=== PATIENT | female | born 1935 | race Caucasian/White ===

== ENCOUNTER 2016-08-17 08:24 | Day surgery (SDC) | payer MEDICARE ==
[2016-08-14 15:15] VITALS: BMI 20.8
[~2016-08-17 08:24] MED LIST: LACTATED RINGERS 1,000 ML IV SCH
[2016-08-17 08:50] VITALS: TEMP 97.4
[2016-08-17] MEDS ORDERED: LIDOCAINE 1% 20 ML VIAL (10MG/ML) FOR IV START SQ ONE (08:52)
[2016-08-17 09:14] LABS: Glucose,Whole Blood 93 mg/dL (75-99)
[2016-08-17] MEDS ORDERED: PROPOFOL 10 MG/ML 20 ML VIAL IV ONE (09:54)
[2016-08-17] MEDS ORDERED: GLYCOPYRROLATE 0.2 MG/ML 2 ML VIAL ONE (09:54)
[2016-08-17] MEDS ORDERED: LIDOCAINE 1% INJ 10MG/ML (20 ML MDV) ONE (09:54)
--- NOTE | 2016-08-17 10:31 | P.PCN ---
Date of Procedure: 08/17/16 Procedure(s) Performed: Procedure: Esophagogastroduodenoscopy and biopsy. Preoperative diagnosis: Gastroesophageal reflux and dysphagia. Postoperative diagnosis: 1. Small sliding hiatal hernia with no obvious esophagitis or complicated reflux disease. 2. Antral gastritis and duodenitis. Preparation and sedation: Were provided by anesthesia. Brief clinical history: The patient is an 81-year-old female who was evaluated in the office in June for further evaluation of reflux. She was complaining of episodes of retrosternal burning and pain over the left chest and left arm. Cardiac workup was negative. She also had issues with dysphagia worse over the last several months with no other alarm symptoms. The patient had prior upper endoscopies and history of H. pylori infection in the past. Procedure: With the patient on her left lateral decubitus position and after informed consent and adequate sedation, I passed the Olympus-GIF 160 video upper endoscope through the cricopharyngeus down the esophagus. GE junction was around 38 cm from the incisors and there was a small sliding hiatal hernia. The esophagus did not show any obvious erosions or ulcers. There were no strictures or Omer's esophagus. The endoscope was then passed into the stomach which was insufflated with air and inspected in detail including the retroflex view in the cardia. There was mottling and erythema and some deformity in the antrum and the immediate prepyloric area with occasional erosion but no ulcers or bleeding. Pyloric channel did not show any ulcers. Duodenal bulb, post bulbar area and descending duodenum showed minimal erythema. I obtained multiple biopsies from the duodenum, antrum and esophagus then the endoscope was withdrawn. The patient tolerated the procedure well. Plan: Will await biopsy results. She will follow-up in the office and make further plans based on her course and biopsy results. I would consider an esophagogram and a motility study if she continues to be symptomatic especially if there is nutritional compromise. Would keep you updated on her progress.
[2016-08-17 10:48] VITALS: BP 122/78; PULSE 72; RESP 18
== END 2016-08-17 11:10 | disposition home or self-care (01) ==
LOC: ORWHC2ENDO 08:24
DX: K21.9 Gastro-esophageal reflux disease without esophagitis (principal); K29.50 Unspecified chronic gastritis without bleeding; K44.9 Diaphragmatic hernia without obstruction or gangrene; E78.5 Hyperlipidemia, unspecified; E16.2 Hypoglycemia, unspecified; Z79.2 Long term (current) use of antibiotics; Z79.899 Other long term (current) drug therapy; Z91.040 Latex allergy status
CPT/HCPCS: 88305; 88342; 43239; J2001; J2704; 99153

== ENCOUNTER → 2016-09-28 | Outpatient (CLI) | payer MEDICARE ==
--- NOTE | 2016-10-02 11:32 | MM ---
Reason for exam: screening (asymptomatic). Last mammogram was performed 1 year ago. History: Patient is postmenopausal. Family history of breast cancer in sister at age 65. Physical Findings: A clinical breast exam by your physician is recommended on an annual basis and results should be correlated with mammographic findings. MG Screening Mammo w CAD Bilateral CC and MLO view(s) were taken. Prior study comparison: September 14, 2015, bilateral MG screening mammo w CAD. September 03, 2014, bilateral MG screening mammo w CAD. The breast tissue is heterogeneously dense. This may lower the sensitivity of mammography. Finding: There are typically benign calcifications in both breasts. No significant changes in finding since September 14, 2015 and September 03, 2014. ASSESSMENT: Benign, BI-RAD 2 RECOMMENDATION: Routine screening mammogram of both breasts in 1 year.
== END | disposition home or self-care (01) ==
LOC: RADMAMWWP 07:39
PROVIDERS: ATTEND Internal Medicine
DX: Z12.31 Encounter for screening mammogram for malignant neoplasm of breast (principal)

== ENCOUNTER → 2017-01-10 | Outpatient (CLI) | payer MEDICARE ==
--- NOTE | 2017-01-11 07:57 | WWHP ---
DATE OF SERVICE: 01/10/2017 CHIEF COMPLAINT: Patient is here for her routine gynecologic exam. HPI: This is an 81-year-old G2, P2 with an LMP of the . The patient is status post vaginal hysterectomy for benign reasons. She states she has been having some vaginal irritation especially after wiping following urination. She states it feels more like a slight burning irritation and denies pruritis. She also denies vulvar pruritis. She states that irritation is just inside of the vagina. She saw her primary care physician for this and a PAP smear of the vaginal cuff was attempted but was returned as unsatisfactory because of inadequate cells. The patient denies vaginal discharge or odor. PAST MEDICAL HISTORY: Gastroesophageal reflux disease, hiatal hernia, elevated cholesterol, osteopenia, hypoglycemia which is diet-controlled. MEDICATIONS: 1. Toprol 25 mg daily. 2. Antivert 1 t.i.d. p.r.n. 3. Zocor 5 mg daily. 4. Aspirin 325 mg daily. 5. Vitamin D supplement daily. 6. Co-Q 10 daily. Allergies to LATEX. There are no known drug allergies. Past surgical history is unchanged from the 2014 H&P. 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 She has no history of STD's. SOCIAL HISTORY: She denies tobacco, alcohol and drug use and is a and is not sexually active. FAMILY HISTORY: Both parents had an MD, sister had breast cancer and heart disease. REVIEW OF SYSTEMS: She has gained about 5 pounds over the last year. She denies respiratory, cardiac or GI problems. She denies maltreatment or falling. : She denies any significant problems with urinary leakage. She has had some vaginal irritation as above. PHYSICAL EXAM: Blood pressure 147/79, height 5 feet, 2 inches, weight 122 pounds, temperature 98.2, pulse 80. This is a well-developed, well-nourished white female who is alert and oriented x3 in no acute distress. HEENT is within normal limits. NECK: Supple without mass or thyromegaly. Chest and lungs clear to auscultation. HEART: Regular rate and rhythm. Breasts are without mass or discharge. Axillary exam is negative for adenopathy. BACK: Negative for CVA tenderness. ABDOMEN: Soft, nontender without palpable masses. PELVIC EXAM: External genitalia reveals moderate atrophy without lesions. There is minimal erythema noted. Vagina reveals moderate atrophy without lesions. There is no unusual discharge and no evidence of prolapse. By manual exam is negative for mass or tenderness. Rectovaginal exam is negative for mass or tenderness and is negative for occult blood. EXTREMITIES: Nontender. IMPRESSION: 1. An 81-year-old menopausal female with a several month history of vaginal irritation, especially after wiping. 2. 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 PLAN: 1. PAP smears have been discontinued. I have discussed this with the patient and I do not feel the need to repeat the PAP smear even though it was unsatisfactory when obtained through here primary restorative care technician. This is because she is status post vaginal hysterectomy for benign reasons. 2. Self-breast examination was discussed. 3. Mammogram was done on 09/28/2016 and was benign. She will repeat this in 1 year. 4. Trial of Premarin vaginal cream. She is use small amount of 1 g or less which she will apply to the area of the entroitis and just inside of the vagina as well as near the urethral opening. She will apply this twice weekly. 5. Osteoporosis prevention was discussed. I have recommended bone density testing since it has been several years but she is declining this. 6. I have recommended she consider flu shots in the fall which she is also declining. 7. She will return in 1 year and p.r.n. MTDD
== END ==
LOC: WWCWWP 10:21
PROVIDERS: ATTEND Obstetrics & Gynecology
DX: Z01.419 Encounter for gynecological examination (general) (routine) without abnormal findings (principal)

== ENCOUNTER → 2017-04-18 | Outpatient (CLI) | payer MEDICARE ==
--- NOTE | 2017-05-04 07:11 | ENG ---
ELECTRONYSTAGMOGRAM REPORT DATE OF SERVICE: 04/18/2017 VNG INDICATION: This is an 82-year-old female with vertigo, intermittent since 1998 staying the same. Dizziness can be precipitated by looking up or head back position, turning the head left to right, bending over, or movements of the head in general. Denies hearing loss. There is pain and fullness in the left ear. VNG FINDINGS: Saccades show intact peak velocities, accuracies and latencies. Gaze with fixation shows no nystagmus in any of the directions of gaze including centrally with vision denied. TRACKING: Unremarkable. Opticokinetic nystagmus shows no significant asymmetry. Static position testing shows nystagmus in any of the six positions tested with eyes opened or vision denied. [employer]-Hallpike maneuvers are negative bilaterally. Caloric testing shows bilateral caloric weakness. Another test such as head thrust test or if available, active and passive rotation testing is required to confirm presence of bilateral vestibular dysfunction. No determination can be made regarding vestibulopathy. IMPRESSION: 1. Bilateral caloric weakness precludes determination of vestibulopathy. Other testing such has head thrust or active or passive rotation testing required to confirm presence of bilateral vestibular dysfunction. 2. No other abnormalities were noted with this VNG study. No central features. MMODL / IJN: [id number] /
== END ==
LOC: NEUROMAIN 08:38
PROVIDERS: ATTEND Otolaryngology
DX: R42 Dizziness and giddiness (principal)
CPT/HCPCS: 92537; 92540

== ENCOUNTER → 2017-10-23 | Outpatient (CLI) | payer MEDICARE ==
--- NOTE | 2017-10-24 11:57 | MM ---
Reason for exam: screening (asymptomatic). Last mammogram was performed 1 year and 1 month ago. History: Patient is postmenopausal. Family history of breast cancer in sister at age 65. Physical Findings: A clinical breast exam by your physician is recommended on an annual basis and results should be correlated with mammographic findings. MG 3D Screening Mammo W/Cad Bilateral CC and MLO view(s) were taken. Prior study comparison: September 28, 2016, bilateral MG screening mammo w CAD. September 14, 2015, bilateral MG screening mammo w CAD. The breast tissue is heterogeneously dense. This may lower the sensitivity of mammography. Benign calcifications, mostly vascular. No suspicious abnormality. No significant changes when compared with prior studies. ASSESSMENT: Benign, BI-RAD 2 RECOMMENDATION: Routine screening mammogram of both breasts in 1 year.
== END | disposition home or self-care (01) ==
LOC: RADMAMWWP 09:49
PROVIDERS: ATTEND Internal Medicine
DX: Z12.31 Encounter for screening mammogram for malignant neoplasm of breast (principal)
CPT/HCPCS: 77063; 77067

== ENCOUNTER → 2018-03-27 | Outpatient (CLI) | payer MEDICARE ==
[2018-03-27 10:12] VITALS: BP 129/77; PULSE 84; RESP 16; TEMP 98; BMI 22.6
--- NOTE | 2018-03-27 11:20 | P.HPOB ---
History of Present Illness H&P Date: 03/27/18 Chief Complaint: The patient is here for her routine gynecologic exam. This is an 83-year-old G2 PII with an LMP in the . The patient is status post vaginal hysterectomy for benign reasons. The patient is without gynecologic complaints. Review of Systems The patient's weight has been stable. She denies respiratory, cardiac and G.I. problems except for occasional gastric reflux. She denies maltreatment or problems with falling. : she denies any significant problems with urinary leakage. Past Medical History Past Medical History: GERD/Reflux, Hyperlipidemia Additional Past Medical History / Comment(s): HX H.PYLORI. OCCASIONAL ARRYTHMIA. HYPOGLYCEMIA diet controlled. 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 History of Any Multi-Drug Resistant Organisms: None Reported Past Surgical History: Appendectomy, Hysterectomy (Vaginal hysterectomy with cystocele repair 2010-) Additional Past Surgical History / Comment(s): HEMORROIDECTOMY. Cataracts. COLONOSCOPIES (last 2013), EGD. Past Anesthesia/Blood Transfusion Reactions: No Reported Reaction Past Psychological History: No Psychological Hx Reported Smoking Status: Never smoker Past Alcohol Use History: None Reported Past Drug Use History: None Reported Additional History: She is a and is not sexually active. - Past Family History Sister(s) Family Medical History: Cancer (Breast) Father Family Medical History: Cancer, Myocardial Infarction ([place]), Osteoarthritis ([place]) Mother Family Medical History: Myocardial Infarction ([place]) Medications and Allergies Home Medications Medication Instructions Recorded Confirmed Type Aspirin 81 mg PO DAILY 12/22/13 03/27/18 History Calcium Carbonate/Vitamin D3 1 tab PO DAILY 12/22/13 03/27/18 History [Caltrate 600 Plus D3 Tablet] Fish Oil/Dha/Epa [Fish Oil 1,200 1 cap PO DAILY 12/22/13 03/27/18 History mg Fish Oil] Metoprolol Succinate [Toprol XL] 25 mg PO 1200 12/22/13 03/27/18 History Simvastatin [Zocor] 5 mg PO MOTUWETHFR 12/22/13 03/27/18 History Ubidecarenone [Coq-10] 100 mg PO DAILY 12/22/13 03/27/18 History Vitamin B Complex 1 cap PO DAILY 12/22/13 03/27/18 History Vitamin E (Dl,Tocopheryl Acet) 400 units PO DAILY 12/22/13 03/27/18 History [Vitamin E] Calcium Carb/Magnesium Hydrox 2 tab PO 5XD PRN 05/24/15 03/27/18 History [Rolaids Chewable Tablet] Propylene Glycol/Peg 400/Pf 1 drop BOTH EYES BID 05/24/15 03/27/18 History [Systane 0.3-0.4% Eye Drops] Acetaminophen [Tylenol] 500 mg PO Q4-6H PRN 08/14/16 03/27/18 History Meclizine [Antivert] 12.5 mg PO TID PRN 08/14/16 03/27/18 History Saline Nasal [place] 1 spray EA NOSTRIL DAILY 08/14/16 03/27/18 History Allergies Allergy/AdvReac Type Severity Reaction Status Date / Time latex Allergy Rash/Hives Verified 03/27/18 10:13 Exam Vital Signs Temp Pulse Resp BP 03/27/18 10:08 98 F 84 16 129/77 Intake and Output 03/26/18 03/27/18 03/27/18 22:59 06:59 14:59 Other: Weight 56.245 kg 5'2", BMI 22.7. This is a well-developed well-nourished white female who is alert and oriented times 3 in no acute distress. HEENT: Within normal limits. NECK: Supple without mass or thyromegaly. CHEST AND LUNGS: Clear to auscultation. HEART: Regular rate and rhythm. BREASTS: Are without mass or discharge. AXILLARY EXAM: Negative for adenopathy. BACK: Negative for CVA tenderness. ABDOMEN: Soft, nontender, without palpable masses. PELVIC EXAM: External genitalia appears normal with mild to moderate atrophy. Vagina appears normal with mild to moderate atrophy. There is no evidence of prolapse. Bimanual examination is negative for mass or tenderness. RECTAL EXAM: Rectovaginal exam is negative for mass or tenderness and is negative for occult blood. EXTREMITIES: Nontender. IMPRESSION: 1. 83-year-old menopausal female status post vaginal hysterectomy for benign reasons with normal gynecologic exam. PLAN: 1. Pap smears have been discontinued. 2. Self breast awareness was discussed with the patient. 3. Screening mammogram was done on 10/23/2017 and was negative. She will repeat this in one year. 4. Osteoporosis prevention was discussed. She states she is scheduled to do a bone density test through Dr. Garrett in May. 5. I've recommended flu shots in the fall which she is declining. 6. She will return in one year.
== END ==
LOC: WWCWWP 09:27
PROVIDERS: ATTEND Obstetrics & Gynecology
DX: Z53.9 Procedure and treatment not carried out, unspecified reason (principal)

== ENCOUNTER → 2018-10-24 | Outpatient (CLI) | payer MEDICARE ==
--- NOTE | 2018-10-25 13:18 | MM ---
Reason for exam: screening (asymptomatic). Last mammogram was performed 1 year ago. History: Patient is postmenopausal. Family history of breast cancer in sister at age 65. Physical Findings: A clinical breast exam by your physician is recommended on an annual basis and results should be correlated with mammographic findings. MG 3D Screening Mammo W/Cad Bilateral CC and MLO view(s) were taken. Prior study comparison: October 23, 2017, bilateral MG 3d screening mammo w/cad. September 28, 2016, bilateral MG screening mammo w CAD. The breast tissue is heterogeneously dense. This may lower the sensitivity of mammography. Stable benign calcifications. There is chronic nodularity in the right breast. No significant changes when compared with prior studies. ASSESSMENT: Benign, BI-RAD 2 RECOMMENDATION: Routine screening mammogram of both breasts in 1 year.
== END | disposition home or self-care (01) ==
LOC: RADMAMWWP 09:56
PROVIDERS: ATTEND Internal Medicine
DX: Z12.31 Encounter for screening mammogram for malignant neoplasm of breast (principal)
CPT/HCPCS: 77063; 77067

== ENCOUNTER → 2019-04-01 | Outpatient (CLI) | payer MEDICARE ==
[2019-04-01 08:17] VITALS: BP 133/73; PULSE 69; RESP 18; TEMP 98.1; BMI 22.1
--- NOTE | 2019-04-01 09:22 | P.HPOB ---
History of Present Illness H&P Date: 04/01/19 Chief Complaint: The patient is here for her routine gynecologic exam. This is an 84-year-old with an LMP in the . The patient is status post vaginal hysterectomy for benign reasons. The patient is without gynecologic complaints. Review of Systems Her weight has been stable. She denies respiratory, cardiac and G.I. problems. She denies maltreatment or problems with falling. : she denies any significant problems with urinary leakage. Past Medical History Past Medical History: GERD/Reflux, Hyperlipidemia Additional Past Medical History / Comment(s): HX H.PYLORI. OCCASIONAL ARRYTHMIA. HYPOGLYCEMIA diet controlled. 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 History of Any Multi-Drug Resistant Organisms: None Reported Past Surgical History: Appendectomy, Hysterectomy Additional Past Surgical History / Comment(s): Vaginal hysterectomy with cystocele repair 2010. HEMORROIDECTOMY. Cataracts. COLONOSCOPIES (last 2013), EGD. Past Anesthesia/Blood Transfusion Reactions: No Reported Reaction Past Psychological History: No Psychological Hx Reported Smoking Status: Never smoker Past Alcohol Use History: None Reported Past Drug Use History: None Reported Additional History: She is a and is not sexually active. - Past Family History Sister(s) Family Medical History: Cancer Additional Family Medical History / Comment(s): Breast cancer. Father Family Medical History: Cancer, Myocardial Infarction ([place]), Osteoarthritis ([place]) Mother Family Medical History: Myocardial Infarction ([place]) Medications and Allergies Home Medications Medication Instructions Recorded Confirmed Type Aspirin 81 mg PO DAILY 12/22/13 04/01/19 History Calcium Carbonate/Vitamin D3 1 tab PO DAILY 12/22/13 04/01/19 History [Caltrate 600 Plus D3 Tablet] Fish Oil/Dha/Epa [Fish Oil 1,200 1 cap PO DAILY 12/22/13 04/01/19 History mg Fish Oil] Metoprolol Succinate [Toprol XL] 25 mg PO 1200 12/22/13 04/01/19 History Simvastatin [Zocor] 5 mg PO MOTUWETHFR 12/22/13 04/01/19 History Ubidecarenone [Coq-10] 100 mg PO DAILY 12/22/13 04/01/19 History Vitamin B Complex 1 cap PO DAILY 12/22/13 04/01/19 History Calcium Carb/Magnesium Hydrox 2 tab PO 5XD PRN 05/24/15 04/01/19 History [Rolaids Chewable Tablet] Propylene Glycol/Peg 400/Pf 1 drop BOTH EYES BID 05/24/15 04/01/19 History [Systane 0.3-0.4% Eye Drops] Acetaminophen [Tylenol] 500 mg PO Q4-6H PRN 08/14/16 04/01/19 History Saline Nasal [place] 1 spray EA NOSTRIL DAILY 08/14/16 04/01/19 History Allergies Allergy/AdvReac Type Severity Reaction Status Date / Time latex Allergy Rash/Hives Verified 04/01/19 08:17 Exam Vital Signs Temp Pulse Resp BP Pulse Ox 04/01/19 08:07 98.1 F 69 18 133/73 98 Intake and Output 03/31/19 04/01/19 04/01/19 22:59 06:59 14:59 Other: Weight 54.885 kg Height 5 feet 2 inches, weight 121 pounds, BMI 22.1. This is a well-developed well-nourished white female who is alert and oriented times 3 in no acute distress. HEENT: Within normal limits. NECK: Supple without mass or thyromegaly. CHEST AND LUNGS: Clear to auscultation. HEART: Regular rate and rhythm. BREASTS: Are without mass or discharge. AXILLARY EXAM: Negative for adenopathy. BACK: Negative for CVA tenderness. ABDOMEN: Soft, nontender, without palpable masses. PELVIC EXAM: External genitalia appears normal with mild to moderate atrophy. Vagina appears normal is mild to moderate atrophy. There is no evidence of prolapse. Bimanual examination is negative for mass or tenderness. RECTAL EXAM: Rectovaginal exam is negative for mass or tenderness and is negative for occult blood. EXTREMITIES: Nontender. IMPRESSION: 1. 84-year-old menopausal female status post vaginal hysterectomy for benign reasons with normal gynecologic exam. 2. 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 PLAN: 1. Pap smears have been discontinued. 2. Self breast awareness was discussed with the patient. 3. Screening mammogram was done on 10/24/2018 and was benign. She will repeat this in 1 year. 4. Osteoporosis prevention was discussed. I have stressed the importance of adequate calcium, vitamin D and regular exercise. Recommended amounts of calcium and vitamin D were also discussed. She states she had a bone density test done within the last year through her PCP and was okay per the patient. 5. She states she does not get flu shots in the fall. I have recommended that she reconsider this. 6. The patient was advised to return in 1-2 years for her well woman examination.
== END | disposition home or self-care (01) ==
LOC: WWCWWP 07:37
PROVIDERS: ATTEND Obstetrics & Gynecology
DX: Z53.9 Procedure and treatment not carried out, unspecified reason (principal)

== ENCOUNTER 2019-10-19 18:32 | Emergency (ER) | payer MEDICARE ==
[2019-10-19 18:46] VITALS: RESP 16
[2019-10-19] MEDS ORDERED: SODIUM CHLORIDE 0.9% 500 ML 500 ML IV STA (18:59)
--- NOTE | 2019-10-19 19:23 | ED ---
Arrhythmia/Palpitations HPI - General Source: patient Mode of arrival: ambulatory Limitations: no limitations <Brianda Bustillo - Last Filed: 10/19/19 22:00> <Ignacia Mora - Last Filed: 10/20/19 23:26> - General Chief Complaint: Arrhythmia/Palpitations Stated Complaint: SOB, rapid heart rate Time Seen by Provider: 10/19/19 18:47 - History of Present Illness Initial Comments: 84-year-old female patient presents to the emergency department today for evaluation of palpitations. Patient states she was sitting watching television when she felt her heart start to race. States she can feel a pounding in her ch est. She denies any associated symptoms with this. States this generally does not happen to her. States the initial episode was around 2:30 this afternoon. States took an aspirin at that time and her symptoms seemed to resolve. States that it occurred again just prior to arrival so she decided to come in and get checked out. Patient states that she when she felt her pulse it felt regular, just fast. She denies any dizziness, weakness, chest pain, shortness of breath, nausea, or vomiting with this. Patient states that she did have chest test 6 months ago which was unremarkable. States she did wear a heart monitor for a period of time after the stress test. States this was just routine checkup and not related to any symptoms she was having. Patient denies any recent rash, fever, chills, cough, abdominal pain, diarrhea, constipation, back pain, numbness, tingling, hematuria, dysuria, urinary urgency, urinary frequency, headache, visual changes, or any other complaints. (Brianda Bustillo) - Related Data Home Medications Medication Instructions Recorded Confirmed Calcium Carbonate/Vitamin D3 1 tab PO DAILY 12/22/13 10/19/19 [Caltrate 600 Plus D3 Tablet] Fish Oil/Dha/Epa [Fish Oil 1,200 1 cap PO DAILY 12/22/13 10/19/19 mg Fish Oil] Metoprolol Succinate [Toprol XL] 12.5 mg PO DAILY 12/22/13 10/19/19 Simvastatin [Zocor] 5 mg PO MOTUWETHFR 12/22/13 10/19/19 Ubidecarenone [Coq-10] 100 mg PO DAILY 12/22/13 10/19/19 Vitamin B Complex 1 cap PO DAILY 12/22/13 10/19/19 Propylene Glycol/Peg 400/Pf 1 drop BOTH EYES BID 05/24/15 10/19/19 [Systane 0.3-0.4% Eye Drops] Acetaminophen [Tylenol] 500 mg PO Q4-6H PRN 08/14/16 10/19/19 Aspirin EC [Ecotrin Low Dose] 81 mg PO DAILY 10/19/19 10/19/19 Calcium Carbonate [Tums] 1,000 mg PO TID PRN 10/19/19 10/19/19 Sodium Chloride [[place]] 1 spray EA NOSTRIL DAILY 10/19/19 10/19/19 Allergies Allergy/AdvReac Type Severity Reaction Status Date / Time latex Allergy Rash/Hives Verified 10/19/19 20:30 Review of Systems ROS Other: All systems not noted in ROS Statement are negative. <Brianda Bustillo - Last Filed: 10/19/19 22:00> ROS Other: All systems not noted in ROS Statement are negative. <Ignacia Mora - Last Filed: 10/20/19 23:26> ROS Statement: Those systems with pertinent positive or pertinent negative responses have been documented in the HPI. Past Medical History Past Medical History: GERD/Reflux, Hyperlipidemia Additional Past Medical History / Comment(s): HX H.PYLORI. OCCASIONAL ARRYTHMIA. HYPOGLYCEMIA diet controlled. 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 History of Any Multi-Drug Resistant Organisms: None Reported Past Surgical History: Appendectomy, Hysterectomy Additional Past Surgical History / Comment(s): Vaginal hysterectomy with cystocele repair 2010. HEMORROIDECTOMY. Cataracts. COLONOSCOPIES (last 2013), EGD. Past Anesthesia/Blood Transfusion Reactions: No Reported Reaction Past Psychological History: No Psychological Hx Reported Smoking Status: Never smoker Past Alcohol Use History: None Reported Past Drug Use History: None Reported - Past Family History Sister(s) Family Medical History: Cancer Additional Family Medical History / Comment(s): Breast cancer. Father Family Medical History: Cancer, Myocardial Infarction ([place]), Osteoarthritis ([place]) Mother Family Medical History: Myocardial Infarction ([place]) <Brianda Bustillo - Last Filed: 10/19/19 22:00> General Exam Limitations: no limitations General appearance: alert, in no apparent distress, other (This is a well- developed, well-nourished elderly female patient in no acute distress. Vital signs upon presentation are temperature 98.3F, pulse 86, respiration 16, blood pressure 153/81, pulse ox 99% on room air.) Eye exam: Present: normal appearance, PERRL, EOMI. Absent: scleral icterus, conjunctival injection, periorbital swelling ENT exam: Present: normal exam, normal oropharynx, mucous membranes moist Respiratory exam: Present: normal lung sounds bilaterally. Absent: respiratory distress, wheezes, rales, rhonchi, stridor Cardiovascular Exam: Present: regular rate, normal rhythm, normal heart sounds. Absent: systolic murmur, diastolic murmur, rubs, gallop, clicks GI/Abdominal exam: Present: soft, normal bowel sounds. Absent: distended, tenderness, guarding, rebound, rigid Neurological exam: Present: alert, oriented X3, CN II-XII intact Psychiatric exam: Present: normal affect, normal mood Skin exam: Present: warm, dry, intact, normal color. Absent: rash <Brianda Bustillo - Last Filed: 10/19/19 22:00> Course Vital Signs 10/19/19 10/19/19 18:41 20:01 Temperature 98.3 F 97.6 F Pulse Rate 86 78 Respiratory 16 16 Rate Blood Pressure 153/81 143/82 O2 Sat by Pulse 99 97 Oximetry EKG Findings - EKG Comments: EKG Findings:: EKG obtained at 1855 shows normal sinus rhythm with a ventricular rate of 89, VT interval 122, QRS duration 84, QT 372, QTc 452. No evidence of ST elevation or depression. <Brianda Bustillo - Last Filed: 10/19/19 22:00> Medical Decision Making - Lab Data Result diagrams: 10/19/19 19:10 10/19/19 19:10 - Radiology Data Radiology results: report reviewed, image reviewed <Brianda Bustillo - Last Filed: 10/19/19 22:00> - Lab Data Result diagrams: 10/19/19 19:10 10/19/19 19:10 <Ignacia Mora - Last Filed: 10/20/19 23:26> - Medical Decision Making 84-year-old female patient presents to the emergency department today for evaluation of palpitations. Patient did get a heart rate at home of 98. Physical examination is unremarkable. EKG showed normal sinus rhythm. Labs reviewed and were unremarkable. Upon reevaluation patient is feeling well. Does have a couple being discharged home. We'll discharge to follow up with her primary care physician for further evaluation in 1-2 days, she is urged discuss heart monitoring. Return parameters were discussed in detail. She verbalizes understanding and agrees with this plan. (Brianda Bustillo) I was available for consultation in the emergency department. The history and physical exam were done by the midlevel provider. I was consulted for this patients care. I reviewed the case with the midlevel provider and based on their presentation of the patient, I agree with the assessment, medical decision making and plan of care as documented. Chart was dictated using [employer] dictation software. Attempts were made to correct any dictation errors however some typographical errors may persist. Patient was seen during a national state of emergency due to the Covid-19 pandemic. (Ignacia Mora) - Lab Data Lab Results 10/19/19 10/19/19 10/19/19 Range/Units 19:10 19:10 19:10 WBC 6.9 (3.8-10.6) k/uL RBC 4.76 (3.80-5.40) m/uL Hgb 14.3 (11.4-16.0) gm/dL Hct 43.4 (34.0-46.0) % MCV 91.1 (80.0-100.0) fL MCH 30.0 (25.0-35.0) pg MCHC 33.0 (31.0-37.0) g/dL RDW 13.0 (11.5-15.5) % Plt Count 306 (150-450) k/uL Neutrophils % 72 % Lymphocytes % 17 % Monocytes % 8 % Eosinophils % 2 % Basophils % 0 % Neutrophils # 5.0 (1.3-7.7) k/uL Lymphocytes # 1.2 (1.0-4.8) k/uL Monocytes # 0.5 (0-1.0) k/uL Eosinophils # 0.1 (0-0.7) k/uL Basophils # 0.0 (0-0.2) k/uL PT 9.7 (9.0-12.0) sec INR 0.9 (<1.2) APTT 21.1 L (22.0-30.0) sec Sodium 138 (137-145) mmol/L Potassium 3.9 (3.5-5.1) mmol/L Chloride 102 (98-107) mmol/L Carbon Dioxide 28 (22-30) mmol/L Anion Gap 8 mmol/L BUN 19 H (7-17) mg/dL Creatinine 0.82 (0.52-1.04) mg/dL Est GFR (CKD-EPI)AfAm 76 (>60 ml/min/1.73 sqM) Est GFR (CKD-EPI)NonAf 66 (>60 ml/min/1.73 sqM) Glucose 105 H (74-99) mg/dL Calcium 10.0 (8.4-10.2) mg/dL Magnesium 2.2 (1.6-2.3) mg/dL Total Bilirubin 0.3 (0.2-1.3) mg/dL AST 27 (14-36) U/L ALT 17 (4-34) U/L Alkaline Phosphatase 57 (38-126) U/L Troponin I (0.000-0.034) ng/mL Total Protein 7.5 (6.3-8.2) g/dL Albumin 4.7 (3.5-5.0) g/dL TSH 2.130 (0.465-4.680) mIU/L Urine Color Urine Appearance (Clear) Urine pH (5.0-8.0) Ur Specific [place] (1.001-1.035) Urine Protein (Negative) Urine Glucose (UA) (Negative) Urine Ketones (Negative) Urine Blood (Negative) Urine Nitrite (Negative) Urine Bilirubin (Negative) Urine Urobilinogen (<2.0) mg/dL Ur Leukocyte Esterase (Negative) Urine RBC (0-5) /hpf Urine WBC (0-5) /hpf Ur Squamous Epith Cells (0-4) /hpf 10/19/19 10/19/19 Range/Units 19:10 19:22 WBC (3.8-10.6) k/uL RBC (3.80-5.40) m/uL Hgb (11.4-16.0) gm/dL Hct (34.0-46.0) % MCV (80.0-100.0) fL MCH (25.0-35.0) pg MCHC (31.0-37.0) g/dL RDW (11.5-15.5) % Plt Count (150-450) k/uL Neutrophils % % Lymphocytes % % Monocytes % % Eosinophils % % Basophils % % Neutrophils # (1.3-7.7) k/uL Lymphocytes # (1.0-4.8) k/uL Monocytes # (0-1.0) k/uL Eosinophils # (0-0.7) k/uL Basophils # (0-0.2) k/uL PT (9.0-12.0) sec INR (<1.2) APTT (22.0-30.0) sec Sodium (137-145) mmol/L Potassium (3.5-5.1) mmol/L Chloride (98-107) mmol/L Carbon Dioxide (22-30) mmol/L Anion Gap mmol/L BUN (7-17) mg/dL Creatinine (0.52-1.04) mg/dL Est GFR (CKD-EPI)AfAm (>60 ml/min/1.73 sqM) Est GFR (CKD-EPI)NonAf (>60 ml/min/1.73 sqM) Glucose (74-99) mg/dL Calcium (8.4-10.2) mg/dL Magnesium (1.6-2.3) mg/dL Total Bilirubin (0.2-1.3) mg/dL AST (14-36) U/L ALT (4-34) U/L Alkaline Phosphatase (38-126) U/L Troponin I <0.012 (0.000-0.034) ng/mL Total Protein (6.3-8.2) g/dL Albumin (3.5-5.0) g/dL TSH (0.465-4.680) mIU/L Urine Color Light Yellow Urine Appearance Clear (Clear) Urine pH 6.5 (5.0-8.0) Ur Specific [place] 1.005 (1.001-1.035) Urine Protein Negative (Negative) Urine Glucose (UA) Negative (Negative) Urine Ketones Negative (Negative) Urine Blood Negative (Negative) Urine Nitrite Negative (Negative) Urine Bilirubin Negative (Negative) Urine Urobilinogen <2.0 (<2.0) mg/dL Ur Leukocyte Esterase Moderate H (Negative) Urine RBC <1 (0-5) /hpf Urine WBC 5 (0-5) /hpf Ur Squamous Epith Cells <1 (0-4) /hpf - Radiology Data Two-view x-ray of the chest is obtained. Report is reviewed in its entirety. Impression by Dr. Masters shows normal chest. No change. (Brianda Bustillo) Disposition Is patient prescribed a controlled substance at d/c from ED?: No Time of Disposition: 20:50 <Brianda Bustillo - Last Filed: 10/19/19 22:00> <Ignacia Mora - Last Filed: 10/20/19 23:26> Clinical Impression: Palpitations Disposition: HOME SELF-CARE Condition: Good Instructions (If sedation given, give patient instructions): Heart Palpitations (ED) Additional Instructions: Increase fluids. Half of your body weight in ounces of water is adequate per day. Follow up with your primary care physician for recheck in 1-2 days. Return to the emergency department for recheck for any new, worsening, or concerning symptoms. Referrals: Ney Garrett MD [Primary Care Provider] - 1-2 days
[2019-10-19 19:42] LABS: Albumin 4.7 g/dL (3.5-5.0); Magnesium 2.2 mg/dL (1.6-2.3); Potassium 3.9 mmol/L (3.5-5.1); Total Bilirubin 0.3 mg/dL (0.2-1.3); Total Protein 7.5 g/dL (6.3-8.2)
[2019-10-19 19:52] LABS: INR 0.9 (<1.2); Prothrombin Time 9.7 sec (9.0-12.0)
--- NOTE | 2019-10-19 19:56 | XR ---
EXAMINATION TYPE: XR chest 2V DATE OF EXAM: 10/19/2019 COMPARISON: 05/24/2015 HISTORY: Chest pain TECHNIQUE: 2 views FINDINGS: Heart and mediastinum are normal. Lungs are clear. Diaphragm is normal. Bony thorax appears normal. There are chest leads. IMPRESSION: Normal chest. No change.
[2019-10-19 20:00] LABS: Partial Thromboplastin Time 21.1 sec (22.0-30.0)
[2019-10-19 20:00] LABS: Appearance,Urine Clear (Clear); Bilirubin,Urine Negative (Negative); Blood,Urine Negative (Negative); Color,Urine Light Yellow; Glucose,Urine (UA) Negative (Negative); Ketones,Urine Negative (Negative); Leukocyte Esterase,Urine Moderate (Negative); Nitrite,Urine Negative (Negative); PH, Urine 6.5 (5.0-8.0); Protein,Urine Negative (Negative); RBC,Urine <1 /hpf (0-5); Specific Gravity,Urine 1.005 (1.001-1.035); Squamous Epithelial Cell,Urine <1 /hpf (0-4); Urobilinogen,Urine <2.0 mg/dL (<2.0); WBC,Urine 5 /hpf (0-5)
[2019-10-19 20:02] VITALS: BP 143/82; PULSE 78; TEMP 97.6
[2019-10-19 20:14] LABS: Basophils % (A) 0 %; Eosinophils # (A) 0.1 k/uL (0-0.7); Eosinophils % (A) 2 %; HCT 43.4 % (34.0-46.0); HGB 14.3 gm/dL (11.4-16.0); Lymphocytes # (A) 1.2 k/uL (1.0-4.8); Lymphocytes % (A) 17 %; MCV 91.1 fL (80.0-100.0); Mean Platelet Volume 7.4; Monocytes # (A) 0.5 k/uL (0-1.0); Monocytes % (A) 8 %; Neutrophils % (A) 72 %; Platelet Count 306 k/uL (150-450); RBC 4.76 m/uL (3.80-5.40); WBC 6.9 k/uL (3.8-10.6)
== END 2019-10-19 21:02 | disposition home or self-care (01) ==
LOC: EC 18:32
DX: R00.2 Palpitations (principal); R06.02 Shortness of breath; E78.5 Hyperlipidemia, unspecified; Z82.49 Family history of ischemic heart disease and other diseases of the circulatory system; Z79.82 Long term (current) use of aspirin; Z79.899 Other long term (current) drug therapy; Z91.040 Latex allergy status
CPT/HCPCS: 36415; 71046; 80053; 81001; 83735; 84443; 84484; 85025; 85610; 85730; 93005; 99285

== ENCOUNTER → 2020-03-12 | Outpatient (CLI) | payer MEDICARE ==
--- NOTE | 2020-03-15 09:08 | MM ---
Reason for exam: screening (asymptomatic). Last mammogram was performed 1 year and 5 months ago. History: Patient is postmenopausal. Family history of breast cancer in sister at age 65. Physical Findings: A clinical breast exam by your physician is recommended on an annual basis and results should be correlated with mammographic findings. MG 3D Screening Mammo W/Cad Bilateral CC and MLO view(s) were taken. Prior study comparison: October 24, 2018, bilateral MG 3d screening mammo w/cad. October 23, 2017, bilateral MG 3d screening mammo w/cad. The breast tissue is heterogeneously dense. This may lower the sensitivity of mammography. There are benign appearing vascular calcifications bilaterally. There is no discrete abnormality. ASSESSMENT: Benign, BI-RAD 2 RECOMMENDATION: Routine screening mammogram of both breasts in 1 year.
== END | disposition home or self-care (01) ==
LOC: RADMAMWWP 09:23
PROVIDERS: ATTEND Internal Medicine
DX: Z12.31 Encounter for screening mammogram for malignant neoplasm of breast (principal)
CPT/HCPCS: 77063; 77067

== ENCOUNTER → 2020-04-27 | Outpatient (CLI) | payer MEDICARE ==
[2020-04-27 10:30] VITALS: BP 133/82; PULSE 83; RESP 18; TEMP 98.6
--- NOTE | 2020-04-27 11:17 | P.HPOB ---
History of Present Illness H&P Date: 04/27/20 Chief Complaint: The patient is here for her routine gynecologic exam. This is an 85-year-old with an LMP in the . She is status post vaginal hysterectomy for benign reasons. She is without gynecologic complaints. Review of Systems She is getting about 4 pounds over the past year. She denies respiratory, cardiac and G.I. problems. She denies maltreatment or problems with falling. : she denies any significant problems with urinary leakage. Past Medical History Past Medical History: GERD/Reflux, Hyperlipidemia Additional Past Medical History / Comment(s): HX H.PYLORI. OCCASIONAL ARRYTHMIA. HYPOGLYCEMIA diet controlled. 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 History of Any Multi-Drug Resistant Organisms: None Reported Past Surgical History: Appendectomy, Hysterectomy Additional Past Surgical History / Comment(s): Vaginal hysterectomy with cystocele repair 2010. HEMORROIDECTOMY. Cataracts. COLONOSCOPIES (last 2013), EGD. Past Anesthesia/Blood Transfusion Reactions: No Reported Reaction Past Psychological History: No Psychological Hx Reported Smoking Status: Never smoker Past Alcohol Use History: None Reported Past Drug Use History: None Reported Additional History: She is a and is not sexually active. She has 2 sons, one nearby and 1 in [place]. - Past Family History Sister(s) Family Medical History: Cancer Additional Family Medical History / Comment(s): Breast cancer. Father Family Medical History: Cancer, Myocardial Infarction ([place]), Osteoarthritis ([place]) Mother Family Medical History: Myocardial Infarction ([place]) Medications and Allergies Home Medications Medication Instructions Recorded Confirmed Type Calcium Carbonate/Vitamin D3 1 tab PO DAILY 12/22/13 04/27/20 History [Caltrate 600 Plus D3 Tablet] Fish Oil/Dha/Epa [Fish Oil 1,200 1 cap PO DAILY 12/22/13 04/27/20 History mg Fish Oil] Metoprolol Succinate [Toprol XL] 12.5 mg PO DAILY 12/22/13 04/27/20 History Simvastatin [Zocor] 5 mg PO MOTUWETHFR 12/22/13 04/27/20 History Ubidecarenone [Coq-10] 100 mg PO DAILY 12/22/13 04/27/20 History Vitamin B Complex 1 cap PO DAILY 12/22/13 04/27/20 History Propylene Glycol/Peg 400/Pf 1 drop BOTH EYES BID 05/24/15 04/27/20 History [Systane 0.3-0.4% Eye Drops] Acetaminophen [Tylenol] 500 mg PO Q4-6H PRN 08/14/16 04/27/20 History Aspirin EC [Ecotrin Low Dose] 81 mg PO DAILY 10/19/19 04/27/20 History Calcium Carbonate [Tums] 1,000 mg PO TID PRN 10/19/19 04/27/20 History Sodium Chloride [[place]] 1 spray EA NOSTRIL DAILY 10/19/19 04/27/20 History Allergies Allergy/AdvReac Type Severity Reaction Status Date / Time latex Allergy Rash/Hives Verified 04/27/20 10:16 Exam Vital Signs Temp Pulse Resp BP Pulse Ox 04/27/20 10:25 98.6 F 83 18 133/82 98 Intake and Output 04/26/20 04/27/20 04/27/20 22:59 06:59 14:59 Other: Weight 56.699 kg Height 5 feet 2 inches, weight 125 pounds, BMI 22.9. This is a well-developed well-nourished white female who is alert and oriented times 3 in no acute distress. HEENT: Within normal limits. NECK: Supple without mass or thyromegaly. CHEST AND LUNGS: Clear to auscultation. HEART: Regular rate and rhythm. BREASTS: Are without mass or discharge. AXILLARY EXAM: Negative for adenopathy. BACK: Negative for CVA tenderness. ABDOMEN: Soft, nontender, without palpable masses. PELVIC EXAM: External genitalia appears normal with mild to moderate atrophy. Vagina appears normal with moderate atrophy. There is no evidence of prolapse. Bimanual examination is negative for mass or tenderness. RECTAL EXAM: Rectovaginal exam is negative for mass or tenderness and is negative for occult blood. EXTREMITIES: Nontender. IMPRESSION: 1. 85-year-old menopausal female status post vaginal hysterectomy for benign reasons with normal gynecologic exam. 2. 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 PLAN: 1. Pap smears have been discontinued. 2. Self breast awareness was discussed with the patient. Screening mammogram was recently done on 03/12/2020 and was benign. She will repeat this in 1 year. 3. Osteoporosis prevention was discussed. I have stressed the importance of adequate calcium, vitamin D and regular exercise. Recommended amounts of calcium and vitamin D were also discussed. Her last bone density test was probably around 3 years ago. I have recommended repeating the bone density test. She is declining this at this time. She will let me know if she changes her mind and she will also consider doing it at her next well woman examination. 4. She states she does not get flu shots in the fall. I have recommended that she reconsider this as well as consider the coronavirus vaccine when it is available. 5. The patient was advised to return in 1-2 years for her well woman examination.
== END | disposition home or self-care (01) ==
LOC: WWCWWP 09:57
PROVIDERS: ATTEND Obstetrics & Gynecology
DX: Z53.9 Procedure and treatment not carried out, unspecified reason (principal)

== ENCOUNTER → 2021-04-22 | Outpatient (CLI) | payer MEDICARE ==
--- NOTE | 2021-04-25 11:52 | MM ---
Reason for exam: screening (asymptomatic). Last mammogram was performed 1 year and 1 month ago. History: Patient is postmenopausal. Family history of breast cancer in sister at age 65. Physical Findings: A clinical breast exam by your physician is recommended on an annual basis and results should be correlated with mammographic findings. MG 3D Screening Mammo W/Cad Bilateral CC and MLO view(s) were taken. Prior study comparison: March 12, 2020, bilateral MG 3d screening mammo w/cad. October 24, 2018, bilateral MG 3d screening mammo w/cad. The breast tissue is heterogeneously dense. This may lower the sensitivity of mammography. Stable benign calcifications. Focal asymmetry inner right breast is stable. No significant changes when compared with prior studies. ASSESSMENT: Benign, BI-RAD 2 RECOMMENDATION: Routine screening mammogram of both breasts in 1 year.
== END | disposition home or self-care (01) ==
LOC: RADMAMWWP 09:12
PROVIDERS: ATTEND Family Medicine
DX: Z12.31 Encounter for screening mammogram for malignant neoplasm of breast (principal)
CPT/HCPCS: 77063; 77067

== ENCOUNTER 2021-10-30 13:42 | Emergency (ER) | payer MEDICARE ==
[2021-10-30 14:23] LABS: Basophils % (A) 1 %; Eosinophils # (A) 0.1 k/uL (0-0.7); Eosinophils % (A) 2 %; HCT 43.8 % (34.0-46.0); HGB 14.1 gm/dL (11.4-16.0); Lymphocytes # (A) 0.9 k/uL (1.0-4.8); Lymphocytes % (A) 15 %; MCH 30.5 pg (25.0-35.0); MCHC 32.2 g/dL (31.0-37.0); MCV 94.7 fL (80.0-100.0); Mean Platelet Volume 6.8; Monocytes # (A) 0.6 k/uL (0-1.0); Monocytes % (A) 9 %; Neutrophils # (A) 4.3 k/uL (1.3-7.7); Neutrophils % (A) 71 %; Platelet Count 300 k/uL (150-450); RBC 4.62 m/uL (3.80-5.40); RDW 12.9 % (11.5-15.5); WBC 6.1 k/uL (3.8-10.6)
--- NOTE | 2021-10-30 14:23 | ED ---
General Adult HPI - General Chief complaint: Weakness Stated complaint: Weakness,Dizziness Time Seen by Provider: 10/30/21 13:53 Source: patient Mode of arrival: wheelchair Limitations: no limitations - History of Present Illness Initial comments: Dictation was produced using [employer] dictation software. please excuse any grammatical, word or spelling errors. Chief Complaint: 86-year-old female presents emergency department for evaluation of episode of weakness History of Present Illness: 86-year-old female she has past medical history of GERD, dyslipidemia. Yesterday patient had some left lower quadrant pain that resolved over several hours. This morning she woke up done abdominal pain however while doing her activities of daily living she all of a sudden felt like her heart was racing and she felt severe weakness. It lasted for several minutes and then resolve spontaneously. Patient asymptomatic at the bedside. Around that time she placed the pulse oximeter on her finger that showed her heart rate was around 140. Patient has extensive history of chronic dizziness. The ROS documented in this emergency department record has been reviewed and confirmed by me. Those systems with pertinent positive or negative responses have been documented in the HPI. All other systems are other negative and/or noncontributory. PHYSICAL EXAM: General Impression: Alert and oriented x3, not in acute distress HEENT: Normocephalic atraumatic, extra-ocular movements intact, pupils equal and reactive to light bilaterally, mucous membranes moist. Cardiovascular: Heart regular rate and rhythm Chest: Able to complete full sentences, no retractions, no tachypnea Abdomen: abdomen soft, non-tender, non-distended, no organomegaly Musculoskeletal: Pulses present and equal in all extremities, no peripheral edema Motor: no focal deficits noted Neurological: CN II-XII grossly intact, no focal motor or sensory deficits noted Skin: Intact with no visualized rashes Psych: Normal affect and mood ED course: 86-year-old well-appearing female no significant comorbidities presents to the ER for episode of weakness, dizziness and palpitations. All signs upon arrival are within acceptable limits. EKGs benign. Laboratory evaluation obtained. CBC and metabolic panel unremarkable. Patient reevaluated bedside at 3:15 PM found to be in stable medical condition. She continues to be asymptomatic. Patient discharged advised follow-up with primary care doctor. EKG interpretation: Ventricular rate 80, sinus rhythm,. Interval 125, QS 105, QTC 414. No AR prolongation, no QTC prolongation, no ST or T-wave changes noted. Overall, this EKG is unremarkable - Related Data Home Medications Medication Instructions Recorded Confirmed Calcium Carbonate/Vitamin D3 1 tab PO DAILY 12/22/13 04/27/20 [Caltrate 600 Plus D3 Tablet] Fish Oil/Dha/Epa [Fish Oil 1,200 1 cap PO DAILY 12/22/13 04/27/20 mg Fish Oil] Metoprolol Succinate [Toprol XL] 12.5 mg PO DAILY 12/22/13 04/27/20 Simvastatin [Zocor] 5 mg PO MOTUWETHFR 12/22/13 04/27/20 Ubidecarenone [Coq-10] 100 mg PO DAILY 12/22/13 04/27/20 Vitamin B Complex 1 cap PO DAILY 12/22/13 04/27/20 Propylene Glycol/Peg 400/Pf 1 drop BOTH EYES BID 05/24/15 04/27/20 [Systane 0.3-0.4% Eye Drops] Acetaminophen [Tylenol] 500 mg PO Q4-6H PRN 08/14/16 04/27/20 Aspirin EC [Ecotrin Low Dose] 81 mg PO DAILY 10/19/19 04/27/20 Calcium Carbonate [Tums] 1,000 mg PO TID PRN 10/19/19 04/27/20 Sodium Chloride [Wise] 1 spray EA NOSTRIL DAILY 10/19/19 04/27/20 Allergies Allergy/AdvReac Type Severity Reaction Status Date / Time latex Allergy Rash/Hives Verified 04/27/20 10:16 Review of Systems ROS Statement: Those systems with pertinent positive or pertinent negative responses have been documented in the HPI. ROS Other: All systems not noted in ROS Statement are negative. Past Medical History Past Medical History: GERD/Reflux, Hyperlipidemia Additional Past Medical History / Comment(s): HX H.PYLORI. OCCASIONAL ARRYTHMIA. HYPOGLYCEMIA diet controlled. 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 History of Any Multi-Drug Resistant Organisms: None Reported Past Surgical History: Appendectomy, Hysterectomy Additional Past Surgical History / Comment(s): Vaginal hysterectomy with cystocele repair 2010. HEMORROIDECTOMY. Cataracts. COLONOSCOPIES (last 2013), EGD. Past Anesthesia/Blood Transfusion Reactions: No Reported Reaction Past Psychological History: No Psychological Hx Reported Smoking Status: Never smoker Past Alcohol Use History: None Reported Past Drug Use History: None Reported - Past Family History Sister(s) Family Medical History: Cancer Additional Family Medical History / Comment(s): Breast cancer. Father Family Medical History: Cancer, Myocardial Infarction ([place]), Osteoarthritis (OA) Mother Family Medical History: Myocardial Infarction (MS) General Exam Limitations: no limitations Course Vital Signs 10/30/21 13:46 Temperature 97.9 F Pulse Rate 94 Respiratory 18 Rate Blood Pressure 127/76 O2 Sat by Pulse 98 Oximetry Medical Decision Making - Lab Data Result diagrams: 10/30/21 14:10 10/30/21 14:10 Lab Results 10/30/21 10/30/21 10/30/21 Range/Units 14:10 14:10 14:10 WBC 6.1 (3.8-10.6) k/uL RBC 4.62 (3.80-5.40) m/uL Hgb 14.1 (11.4-16.0) gm/dL Hct 43.8 (34.0-46.0) % MCV 94.7 (80.0-100.0) fL MCH 30.5 (25.0-35.0) pg MCHC 32.2 (31.0-37.0) g/dL RDW 12.9 (11.5-15.5) % Plt Count 300 (150-450) k/uL MPV 6.8 Neutrophils % 71 % Lymphocytes % 15 % Monocytes % 9 % Eosinophils % 2 % Basophils % 1 % Neutrophils # 4.3 (1.3-7.7) k/uL Lymphocytes # 0.9 L (1.0-4.8) k/uL Monocytes # 0.6 (0-1.0) k/uL Eosinophils # 0.1 (0-0.7) k/uL Basophils # 0.0 (0-0.2) k/uL Sodium 138 (137-145) mmol/L Potassium 4.2 (3.5-5.1) mmol/L Chloride 102 (98-107) mmol/L Carbon Dioxide 26 (22-30) mmol/L Anion Gap 10 mmol/L BUN 19 H (7-17) mg/dL Creatinine 0.88 (0.52-1.04) mg/dL Est GFR (CKD-EPI)AfAm 69 (>60 ml/min/1.73 sqM) Est GFR (CKD-EPI)NonAf 60 (>60 ml/min/1.73 sqM) Glucose 145 H (74-99) mg/dL Plasma Lactic Acid Magdy 2.0 (0.7-2.0) mmol/L Calcium 9.6 (8.4-10.2) mg/dL Total Bilirubin 0.4 (0.2-1.3) mg/dL AST 31 (14-36) U/L ALT 20 (4-34) U/L Alkaline Phosphatase 61 (38-126) U/L Total Protein 7.7 (6.3-8.2) g/dL Albumin 4.6 (3.5-5.0) g/dL Lipase 122 (23-300) U/L Influenza Type A (PCR) (Not Detectd) Influenza Type B (PCR) (Not Detectd) RSV (PCR) (Not Detectd) SARS-CoV-2 (PCR) (Not Detectd) 10/30/21 Range/Units 14:10 WBC (3.8-10.6) k/uL RBC (3.80-5.40) m/uL Hgb (11.4-16.0) gm/dL Hct (34.0-46.0) % MCV (80.0-100.0) fL MCH (25.0-35.0) pg MCHC (31.0-37.0) g/dL RDW (11.5-15.5) % Plt Count (150-450) k/uL MPV Neutrophils % % Lymphocytes % % Monocytes % % Eosinophils % % Basophils % % Neutrophils # (1.3-7.7) k/uL Lymphocytes # (1.0-4.8) k/uL Monocytes # (0-1.0) k/uL Eosinophils # (0-0.7) k/uL Basophils # (0-0.2) k/uL Sodium (137-145) mmol/L Potassium (3.5-5.1) mmol/L Chloride (98-107) mmol/L Carbon Dioxide (22-30) mmol/L Anion Gap mmol/L BUN (7-17) mg/dL Creatinine (0.52-1.04) mg/dL Est GFR (CKD-EPI)AfAm (>60 ml/min/1.73 sqM) Est GFR (CKD-EPI)NonAf (>60 ml/min/1.73 sqM) Glucose (74-99) mg/dL Plasma Lactic Acid Magdy (0.7-2.0) mmol/L Calcium (8.4-10.2) mg/dL Total Bilirubin (0.2-1.3) mg/dL AST (14-36) U/L ALT (4-34) U/L Alkaline Phosphatase (38-126) U/L Total Protein (6.3-8.2) g/dL Albumin (3.5-5.0) g/dL Lipase (23-300) U/L Influenza Type A (PCR) Not Detected (Not Detectd) Influenza Type B (PCR) Not Detected (Not Detectd) RSV (PCR) Not Detected (Not Detectd) SARS-CoV-2 (PCR) Not Detected (Not Detectd) Disposition Clinical Impression: Weakness Disposition: HOME SELF-CARE Condition: Good Instructions (If sedation given, give patient instructions): Weakness (ED) Is patient prescribed a controlled substance at d/c from ED?: No Referrals: Angie Cox MD [Primary Care Provider] - 1-2 days
[2021-10-30 14:34] LABS: Albumin 4.6 g/dL (3.5-5.0); Calcium 9.6 mg/dL (8.4-10.2); Potassium 4.2 mmol/L (3.5-5.1); Total Bilirubin 0.4 mg/dL (0.2-1.3); Total Protein 7.7 g/dL (6.3-8.2)
[2021-10-30 15:39] VITALS: BP 121/78; PULSE 70; RESP 17; TEMP 98
== END 2021-10-30 15:37 | disposition home or self-care (01) ==
LOC: EC 13:42
DX: R53.1 Weakness (principal); Z20.822 Contact with and (suspected) exposure to COVID-19; Z73.89 Other problems related to life management difficulty; Z91.040 Latex allergy status
CPT/HCPCS: 36415; 80053; 83605; 83690; 85025; 87636; 93005; 99285

== ENCOUNTER 2022-10-05 09:27 | Observation (INO) | payer MEDICARE ==
[2022-10-05] MEDS ORDERED: NITROGLYCERIN SL TABS 0.4 MG TAB SUBLINGUAL PRN ×2 (09:43→11:26)
[2022-10-05] MEDS ORDERED: NITROGLYCERIN OINT 1 INCH/GM PACKET TOPICAL STA (10:01)
[2022-10-05] MEDS ORDERED: SODIUM CHLORIDE 0.9% 500 ML 500 ML IV STA (10:01)
[2022-10-05] MEDS ORDERED: ASPIRIN 81 MG PO STA (10:01)
--- NOTE | 2022-10-05 10:07 | ED ---
General Adult HPI - General Chief complaint: Chest Pain Stated complaint: Chest Tightness Time Seen by Provider: 10/05/22 09:35 Source: patient, RN notes reviewed, old records reviewed Mode of arrival: ambulatory Limitations: no limitations - History of Present Illness Initial comments: This is a 87-year-old female presents emergency department stating that she woke up this morning started having significant chest heaviness. Patient states she's experiencing 3 days prior but today it was much more severe. Patient states she has no difficulty breathing associated with denied any diaphoretic episodes patient states she denies any nausea or vomiting. Patient states she does occasionally have vertigo but Antivert usually helps her. Patient states this heaviness is something new and it's mostly in her chest but she feels like her whole body feels a little more heavy than normal. Patient denies any recent fever chills or cough. Patient denies any abdominal pain. Patient denies any swelling to the legs or calf tenderness. - Related Data Home Medications Medication Instructions Recorded Confirmed Calcium Carbonate/Vitamin D3 1 tab PO DAILY 12/22/13 04/27/20 [Caltrate 600 Plus D3 Tablet] Fish Oil/Dha/Epa [Fish Oil 1,200 1 cap PO DAILY 12/22/13 04/27/20 mg Fish Oil] Metoprolol Succinate [Toprol XL] 12.5 mg PO DAILY 12/22/13 04/27/20 Simvastatin [Zocor] 5 mg PO MOTUWETHFR 12/22/13 04/27/20 Ubidecarenone [Coq-10] 100 mg PO DAILY 12/22/13 04/27/20 Vitamin B Complex 1 cap PO DAILY 12/22/13 04/27/20 Propylene Glycol/Peg 400/Pf 1 drop BOTH EYES BID 05/24/15 04/27/20 [Systane 0.3-0.4% Eye Drop] Acetaminophen [Tylenol] 500 mg PO Q4-6H PRN 08/14/16 04/27/20 Aspirin EC [Ecotrin Low Dose] 81 mg PO DAILY 10/19/19 04/27/20 Calcium Carbonate [Tums] 1,000 mg PO TID PRN 10/19/19 04/27/20 Sodium Chloride [Hardee] 1 spray EA NOSTRIL DAILY 10/19/19 04/27/20 Allergies Allergy/AdvReac Type Severity Reaction Status Date / Time latex Allergy Rash/Hives Verified 10/05/22 09:37 Review of Systems ROS Statement: Those systems with pertinent positive or pertinent negative responses have been documented in the HPI. ROS Other: All systems not noted in ROS Statement are negative. Past Medical History Past Medical History: GERD/Reflux, Hyperlipidemia Additional Past Medical History / Comment(s): HX H.PYLORI. OCCASIONAL ARRYTHMIA. HYPOGLYCEMIA diet controlled. 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 History of Any Multi-Drug Resistant Organisms: None Reported Past Surgical History: Appendectomy, Hysterectomy Additional Past Surgical History / Comment(s): Vaginal hysterectomy with cystocele repair 2010. HEMORROIDECTOMY. Cataracts. COLONOSCOPIES (last 2013), EGD. Past Anesthesia/Blood Transfusion Reactions: No Reported Reaction Past Psychological History: No Psychological Hx Reported Smoking Status: Never smoker Past Alcohol Use History: None Reported Past Drug Use History: None Reported - Past Family History Sister(s) Family Medical History: Cancer Additional Family Medical History / Comment(s): Breast cancer. Father Family Medical History: Cancer, Myocardial Infarction ([place]), Osteoarthritis (OA) Mother Family Medical History: Myocardial Infarction ([place]) General Exam - General Exam Comments Initial Comments: GENERAL: Patient is well-developed and well-nourished. Patient is nontoxic and well- hydrated and is in mild distress. ENT: Neck is soft and supple. No significant lymphadenopathy is noted. Oropharynx is clear. Moist mucous membranes. Neck has full range of motion without eliciting any pain. EYES: The sclera were anicteric and conjunctiva were pink and moist. Extraocular movements were intact and pupils were equal round and reactive to light. Eyelids were unremarkable. PULMONARY: Unlabored respirations. Good breath sounds bilaterally. No audible rales rhonchi or wheezing was noted. CARDIOVASCULAR: There is a regular rate and rhythm without any murmurs gallops or rubs. ABDOMEN: Soft and nontender with normal bowel sounds. SKIN: Skin is clear with no lesions or rashes and otherwise unremarkable. NEUROLOGIC: Patient is alert and oriented x3. Cranial nerves II through XII are grossly intact. Motor and sensory are also intact. Normal speech, volume and content. Symmetrical smile. MUSCULOSKELETAL: Normal extremities with adequate strength and full range of motion. No lower extremity swelling or edema. No calf tenderness. LYMPHATICS: No significant lymphadenopathy is noted PSYCHIATRIC: Normal psychiatric evaluation. Limitations: no limitations Course Vital Signs 10/05/22 10/05/22 09:35 11:22 Temperature 98.3 F Pulse Rate 85 81 Respiratory 18 16 Rate Blood Pressure 131/90 145/85 O2 Sat by Pulse 98 97 Oximetry Medical Decision Making - Medical Decision Making EKG was interpreted by myself it shows a sinus rhythm at 84 bpm QRS is 90 QT interval 341 QTC is 382. Patient's EKG shows no ST segment elevation or depression. Was pt. sent in by a medical professional or institution (, PA, AGRICULTURAL EDUCATION INSTRUCTOR, urgent care, hospital, or [facility]...) When possible be specific @ -[No] Did you speak to anyone other than the patient for history (EMS, parent, family, police, friend...)? What history was obtained from this source @ -[No] Did you review nursing and triage notes (agree or disagree)? Why? @ -[I reviewed and agree with nursing and triage notes] Were old charts reviewed (outside hosp., previous admission, EMS record, old EKG, old radiological studies, urgent care reports/EKG's, [facility] records)? Report findings @ -I reviewed prior records and lab work on this patient Differential Diagnosis (chest pain, altered mental status, abdominal pain women, abdominal pain men, vaginal bleeding, weakness, fever, dyspnea, syncope, headache, dizziness, GI bleed, back pain, seizure, CVA, palpatations, mental health, musculoskeletal)? @ -Differential Chest Pain: Stable Angina, Unstable Angina, STEMI, NSTEMI Aortic Dissection, Pneumothorax, Musculoskeletal, Esophageal Spasm GERD, Cholecystitis, Pancreatitis, Zoster, this is not meant to be an all-inclusive list. EKG interpreted by me (3pts min.). @ -[As above] X-rays interpreted by me (1pt min.). @ -Chest x-ray was interpreted by myself it shows no acute abnormality CT interpreted by me (1pt min.). @ -[None done] U/S interpreted by me (1pt. min.). @ -[None done] What testing was considered but not performed or refused? (CT, X-rays, U/S, labs)? Why? @ -[None] What meds were considered but not given or refused? Why? @ -[None] Did you discuss the management of the patient with other professionals (professionals i.e. , PA, AGRICULTURAL EDUCATION INSTRUCTOR, lab, RT, psych nurse, adoption social worker, jewel bearing broacher, teacher, safety and security officer, case finisher)? Give summary @ -Laurent infante physician's agreed to admit the patient and the patient wrote admitting orders Was smoking cessation discussed for >3mins.? @ -[No] Was critical care preformed (if so, how long)? @ -[No] Were there social determinants of health that impacted care today? How? (Homelessness, low income, unemployed, alcoholism, drug addiction, transportation, low edu. Level, literacy, decrease access to med. care, snf, rehab)? @ -[No] Was there de-escalation of care discussed even if they declined (Discuss DNR or withdrawal of care, Hospice)? DNR status @ -[No] What co-morbidities impacted this encounter? (DM, HTN, Smoking, COPD, CAD, Cancer, CVA, ARF, Chemo, Hep., AIDS, mental health diagnosis, sleep apnea, morbid obesity)? @ -[None] Was patient admitted / discharged? Hospital course, mention meds given and route, prescriptions, significant lab abnormalities, going to OR and other pertinent info. @ -Patient's chest pain relieved in the emergency department. She has received aspirin and Nitropaste. Patient was having creamy with standing. I spoke with arelis physician's agreed to admit the patient admitted the patient continued the aspirin and Nitropaste on the floor I repeated troponins I consulted cardiology Undiagnosed new problem with uncertain prognosis? @ -[No] Drug Therapy requiring intensive monitoring for toxicity (Heparin, Nitro, Insulin, Cardizem)? @ -[No] Were any procedures done? @ -[No] Diagnosis/symptom? @ -Chest pain Acute, or Chronic, or Acute on Chronic? @ -Acute Uncomplicated (without systemic symptoms) or Complicated (systemic symptoms)? @ -Complicated Side effects of treatment? @ -[No] Exacerbation, Progression, or Severe Exacerbation? @ -[No] Poses a threat to life or bodily function? How? (Chest pain, [place], [place], pneumonia, PE, COPD, DKA, ARF, appy, cholecystitis, CVA, Diverticulitis, Homicidal, Suicidal, threat to staff... and all critical care pts) @ -Yes this could lead to an [place] which could potentially lead to end organ dysfunction - Lab Data Result diagrams: 10/05/22 10:10 10/05/22 10:10 Lab Results 10/05/22 10/05/22 10/05/22 Range/Units 10:10 10:10 10:10 WBC 6.3 (3.8-10.6) k/uL RBC 4.35 (3.80-5.40) m/uL Hgb 13.0 (11.4-16.0) gm/dL Hct 38.8 (34.0-46.0) % MCV 89.2 (80.0-100.0) fL MCH 29.8 (25.0-35.0) pg MCHC 33.4 (31.0-37.0) g/dL RDW 13.0 (11.5-15.5) % Plt Count 317 (150-450) k/uL MPV 6.9 Neutrophils % 74 % Lymphocytes % 13 % Monocytes % 8 % Eosinophils % 4 % Basophils % 0 % Neutrophils # 4.7 (1.3-7.7) k/uL Lymphocytes # 0.8 L (1.0-4.8) k/uL Monocytes # 0.5 (0-1.0) k/uL Eosinophils # 0.3 (0-0.7) k/uL Basophils # 0.0 (0-0.2) k/uL Sodium 137 (137-145) mmol/L Potassium 3.9 (3.5-5.1) mmol/L Chloride 100 (98-107) mmol/L Carbon Dioxide 29 (22-30) mmol/L Anion Gap 8 mmol/L BUN 18 H (7-17) mg/dL Creatinine 0.81 (0.52-1.04) mg/dL Est GFR (CKD-EPI)AfAm 76 (>60 ml/min/1.73 sqM) Est GFR (CKD-EPI)NonAf 66 (>60 ml/min/1.73 sqM) Glucose 162 H (74-99) mg/dL Calcium 9.5 (8.4-10.2) mg/dL Magnesium 2.2 (1.6-2.3) mg/dL Total Bilirubin 0.3 (0.2-1.3) mg/dL AST 27 (14-36) U/L ALT 24 (4-34) U/L Alkaline Phosphatase 68 (38-126) U/L Troponin I <0.012 (0.000-0.034) ng/mL Total Protein 6.8 (6.3-8.2) g/dL Albumin 4.2 (3.5-5.0) g/dL Disposition Clinical Impression: Chest pain Disposition: ADMITTED IP TO THIS HOSP Referrals: Jeremy James MD [Primary Care Provider] - 1-2 days Time of Disposition: 11:26
[2022-10-05 10:19] LABS: Basophils % (A) 0 %; Eosinophils # (A) 0.3 k/uL (0-0.7); Eosinophils % (A) 4 %; HCT 38.8 % (34.0-46.0); Lymphocytes # (A) 0.8 k/uL (1.0-4.8); Lymphocytes % (A) 13 %; MCH 29.8 pg (25.0-35.0); MCHC 33.4 g/dL (31.0-37.0); MCV 89.2 fL (80.0-100.0); Mean Platelet Volume 6.9; Monocytes # (A) 0.5 k/uL (0-1.0); Monocytes % (A) 8 %; Neutrophils # (A) 4.7 k/uL (1.3-7.7); Neutrophils % (A) 74 %; Platelet Count 317 k/uL (150-450); RBC 4.35 m/uL (3.80-5.40); WBC 6.3 k/uL (3.8-10.6)
[2022-10-05 10:32] LABS: Albumin 4.2 g/dL (3.5-5.0); Calcium 9.5 mg/dL (8.4-10.2); Magnesium 2.2 mg/dL (1.6-2.3); Potassium 3.9 mmol/L (3.5-5.1); Total Bilirubin 0.3 mg/dL (0.2-1.3); Total Protein 6.8 g/dL (6.3-8.2)
[2022-10-05 10:39] LABS: INR 0.9 (<1.2); Prothrombin Time 9.9 sec (9.0-12.0)
--- NOTE | 2022-10-05 10:42 | XR ---
EXAMINATION TYPE: XR chest 2V DATE OF EXAM: 10/05/2022 COMPARISON: 10/19/2019 HISTORY: 87-year-old female with chest pain TECHNIQUE: PA and lateral views FINDINGS: Heart normal size. Aorta and pulmonary vasculature within normal limits. Mild hyperinflation. No cons olidation or pleural effusion. IMPRESSION: Mild hyperinflation may relate to depth of inspiration or underlying emphysema. Clinically correlate. Otherwise, no acute cardiopulmonary process.
[2022-10-05 11:43] LABS: Partial Thromboplastin Time 21.9 sec (22.0-30.0)
[2022-10-05] MEDS ORDERED: NITROGLYCERIN OINT 1 INCH/GM PACKET TOPICAL SCH ×3 (12:00→18:00)
[2022-10-05] MEDS ORDERED: METOPROLOL TARTRATE 12.5 MG TAB PO SCH (12:15)
[2022-10-05] MEDS ORDERED: ACETAMINOPHEN TAB 500 MG TAB PO PRN (12:15)
[2022-10-05] MEDS ORDERED: MECLIZINE 25 MG TAB PO PRN (12:15)
--- NOTE | 2022-10-05 12:42 | P.CRDCN ---
History of Present Illness Consult date: 10/05/22 Consult reason: chest pain History of present illness: History of present illness: This is an 87-year-old female patient of Dr. Patel past medical history of hypertension, dyslipidemia, coronary artery disease, aortic and mitral regurgitation, family history of coronary artery disease less than 60 years of age. We have been asked to evaluate the patient for chest pain. Patient's last office visit was on August 24 and no changes in medications made at that time. Patient presented to the emergency center due to chest pressure that had been ongoing for 3 days and worsening as well as trouble swallowing and feeling 90 something was stuck in the middle volar chest. Not the same as she's had in the past. She states the toe numbness is gone. She had a previous stress test done 6 months ago according to the patient that was negative. EKG sinus rhythm at 84 bpm, no acute ST changes Chest x-ray: No acute cardio pulmonary process CBC unremarkable. INR 0.9. Twice normal. BUN 18 and creatinine 0.8. Blood sugar 162. Magnesium 2.2 area and liver function tests are normal. Troponin negative 1. Home cardiac medications: Aspirin 81 mg daily Echocardiogram 12/2021 revealed normal EF, moderate AR, mild MR Lexiscan stress tests 06/2019 normal Cardiac CTA 2016 minimal CAD Review Of Systems: At the time of my evaluation: Constitutional: No fever, no chills. No weakness, fatigue or lethargy. EENT: No headache. No dizziness. Lungs: No shortness of breath, cough, no sputum production. No wheezing. Cardiovascular: No chest pain-resolved, no lower extremity edema. No palpitations. No paroxysmal nocturnal dyspnea. No orthopnea. No lightheadedness or dizziness. No syncopal episodes. Abdominal: No abdominal pain. No nausea, vomiting. No diarrhea. No constipation. No bloody or tarry stools. Genitourinary: No dysuria.. No urinary retention. Musculoskeletal: No myalgias. No muscle weakness, no frequent falls. No back pain. No neck pain. Integumentary: No wounds. No rash. No unusual bruising. Neurologic: No aphasia. No facial droop. No change in mentation. No head injury. No headache. Physical examination: Gen: This is a 87-year-old female. She is resting on ER stretcher and appears to be comfortable and in no acute distress. VS: reviewed HEENT: Head is atraumatic, normocephalic. Pupils equal, round. Sclerae is anicteric. NECK: Supple. No JVD. . LUNGS: Clear to auscultation. No wheezes or rhonchi. No intercostal retractions. HEART: Regular rate and rhythm. No murmur. ABDOMEN: Soft No tenderness. EXTREMITIES: No pedal edema. No calf tenderness. NEUROLOGICAL: Patient is awake, alert and oriented x3. Assessment: Chest pain, noncardiac, acute coronary syndrome ruled out Hypertension Dyslipidemia Coronary artery disease Aortic and mitral regurgitation Plan: Patient started on Lopressor 12.5 mg 3 times daily Patient has been already started on Nitropaste decreased to half inch Start patient on heparin subcu Obtain repeat troponins. If second troponin is negative, patient is cleared for discharge and may follow up in the office with Dr. Patel. No need to repeat echocardiogram Cardiology we will sign off and follow on an as-needed basis. Please reconsult for any new concerns. Thank you kindly for this consultation. Nurse practitioner note has been reviewed, I agree with documented findings and plan of care. Patient was seen and examined. Past Medical History Past Medical History: GERD/Reflux, Hyperlipidemia Additional Past Medical History / Comment(s): HX H.PYLORI. OCCASIONAL ARRYTHMIA. HYPOGLYCEMIA diet controlled. 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 History of Any Multi-Drug Resistant Organisms: None Reported Past Surgical History: Appendectomy, Hysterectomy Additional Past Surgical History / Comment(s): Vaginal hysterectomy with cystocele repair 2010. HEMORROIDECTOMY. Cataracts. COLONOSCOPIES (last 2013), EGD. Past Anesthesia/Blood Transfusion Reactions: No Reported Reaction Past Psychological History: No Psychological Hx Reported Smoking Status: Never smoker Past Alcohol Use History: None Reported Past Drug Use History: None Reported - Past Family History Sister(s) Family Medical History: Cancer Additional Family Medical History / Comment(s): Breast cancer. Father Family Medical History: Cancer, Myocardial Infarction ([place]), Osteoarthritis (OA) Mother Family Medical History: Myocardial Infarction ([place]) Medications and Allergies Home Medications Medication Instructions Recorded Confirmed Type Ubidecarenone [Coq-10] 100 mg PO DAILY 12/22/13 10/05/22 History Vitamin B Complex 1 cap PO DAILY 12/22/13 10/05/22 History Acetaminophen [Tylenol] 500 mg PO Q4-6H PRN 08/14/16 10/05/22 History Aspirin EC [Ecotrin Low Dose] 81 mg PO DAILY 10/19/19 10/05/22 History Cholecalciferol [Vitamin D3 (25 25 mcg PO DAILY 10/05/22 10/05/22 History Mcg = 1000 Iu)] Meclizine [Antivert] 25 mg PO TID PRN 10/05/22 10/05/22 History Allergies Allergy/AdvReac Type Severity Reaction Status Date / Time latex Allergy Rash/Hives Verified 10/05/22 11:28 Physical Exam Vitals: Vital Signs Temp Pulse Resp BP Pulse Ox 10/05/22 11:22 81 16 145/85 97 10/05/22 09:35 98.3 F 85 18 131/90 98 Intake and Output 10/04/22 10/05/22 10/05/22 22:59 06:59 14:59 Other: Weight 53.977 kg Results 10/05/22 10:10 10/05/22 10:10 Cardiac Enzymes 10/05/22 10/05/22 Range/Units 10:10 10:10 AST 27 (14-36) U/L Troponin I <0.012 (0.000-0.034) ng/mL Coagulation 10/05/22 Range/Units 10:10 PT 9.9 (9.0-12.0) sec APTT 21.9 L (22.0-30.0) sec CBC 10/05/22 Range/Units 10:10 WBC 6.3 (3.8-10.6) k/uL RBC 4.35 (3.80-5.40) m/uL Hgb 13.0 (11.4-16.0) gm/dL Hct 38.8 (34.0-46.0) % Plt Count 317 (150-450) k/uL Comprehensive Metabolic Panel 10/05/22 Range/Units 10:10 Sodium 137 (137-145) mmol/L Potassium 3.9 (3.5-5.1) mmol/L Chloride 100 (98-107) mmol/L Carbon Dioxide 29 (22-30) mmol/L BUN 18 H (7-17) mg/dL Creatinine 0.81 (0.52-1.04) mg/dL Glucose 162 H (74-99) mg/dL Calcium 9.5 (8.4-10.2) mg/dL AST 27 (14-36) U/L ALT 24 (4-34) U/L Alkaline Phosphatase 68 (38-126) U/L Total Protein 6.8 (6.3-8.2) g/dL Albumin 4.2 (3.5-5.0) g/dL Current Medications Generic Name Dose Route Start Last Admin Trade Name Freq PRN Reason Stop Dose Admin Acetaminophen 500 mg 10/05/22 12:15 Acetaminophen Tab 500 Mg Tab PO Q6H PRN Pain Aspirin 81 mg 10/06/22 09:00 Aspirin 81 Mg PO DAILY [facility] Cholecalciferol 25 mcg 10/06/22 09:00 Cholecalciferol 25 Mcg (1000 Iu) Tablet PO DAILY [facility] Heparin Sodium (Porcine) 5,000 unit 10/05/22 21:00 Heparin Sodium,Porcine/Pf 5,000 Unit/0.5 Ml Syringe SQ Q12HR [facility] Meclizine HCl 25 mg 10/05/22 12:15 Meclizine 25 Mg Tab PO TID PRN Vertigo Metoprolol Tartrate 12.5 mg 10/05/22 12:15 Metoprolol Tartrate 12.5 Mg Tab PO BID [facility] Multivit/Ca Carb/B Cmplx/FA/Prenat 1 each 10/06/22 09:00 Folic Acid-Vit B Complex-Vit C 1 Cap PO DAILY [facility] Nitroglycerin 0.4 mg 10/05/22 11:26 Nitroglycerin Sl Tabs 0.4 Mg Tab SUBLINGUAL Q5M PRN Chest Pain Nitroglycerin 0.5 inch 10/05/22 18:00 Nitroglycerin Oint 1 Inch/Gm Packet TOPICAL Q6HR [facility] Intake and Output 10/04/22 10/05/22 10/05/22 22:59 06:59 14:59 Other: Weight 53.977 kg Patient Weight 10/06/22 06:59 Weight 53.977 kg 10/05/22 10:10 10/05/22 10:10
--- NOTE | 2022-10-05 15:04 | P.HPIM ---
History of Present Illness H&P Date: 10/05/22 Chief Complaint: Chest pain 79-year-old woman with a medical history of hypertension, hyperlipidemia, CAD, aortic mitral regurgitation presented for evaluation chest pain. Patient says that her pain started this morning and felt pressure-like. She did describe some palpitations, but denies any association with fevers, chills, nausea, vomiting, cough, dyspnea, abdominal pain, constipation, diarrhea, dysuria, dyschezia, numbness/weakness of extremities. In the emergency room, patient is afebrile, 131/90, heart rate 85, 98% room air. CBC is unremarkable., BMP is unremarkable. Liver function tests are unremarkable. Troponin was less than 0.012. Repeat troponin is less than 0.012. Coags are unremarkable. EKG showed normal sinus rhythm with no evidence of active ischemia. Chest x-ray was clear bilaterally with no evidence of acute cardiopulmonary pathology. Case was discussed the emergency room provider and decision was made to admit patient to observation for further management. All Systems reviewed and pertinent positives and negatives noted in HPI, all other symptoms are negative Gen: in no apparent distress, resting comfortably in bed Eyes: PERRL, no scleral injection or icterus HENT: normocephalic, atraumatic, good hearing acuity, moist mucous membranes Neck: no tracheal deviation, full range of motion Resp: good air exchange, breathing comfortably with no accessory muscle use, no tactile fremitus CVS: good distal perfusion x 4, no pitting edema GI: soft, NTTP, ND, no hepatosplenomegaly : no suprapubic tenderness, no CVAT, de la torre catheter not present MSK: no clubbing, no cyanosis, no noted contractures of extremities Skin: no noted rashes, petechiae; temperature of skin is appropriate Neuro: moving all extremities without signs of weakness, CN II-XII intact Psych: cooperative, euthymic mood, insight and judgment intact Labs and imaging as above Assessment: Chest pain, atypical Hypertension Hyperlipidemia Aortic and mitral regurgitation History of CAD Plan: Vital signs reviewed and noted in HPI above Lab work reviewed and noted in HPI above EKG and chest x-ray were personally interpreted noted in HPI above Case was discussed with the emergency room provider and decision was made to put the patient to observation for further management Cardiology was consulted and their note reviewed, they cleared the patient for discharge provided the second troponin was negative, which did return negative Patient will start metoprolol 12.5 mg by mouth twice a day Patient will continue aspirin 81 mg daily Patient will be discharged on 40 mg of Lipitor daily Patient will follow-up with cardiology in the outpatient setting as well as primary care physician Past Medical History Past Medical History: GERD/Reflux, Hyperlipidemia Additional Past Medical History / Comment(s): HX H.PYLORI. OCCASIONAL ARRYTHMIA. HYPOGLYCEMIA diet controlled. 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 History of Any Multi-Drug Resistant Organisms: None Reported Past Surgical History: Appendectomy, Hysterectomy Additional Past Surgical History / Comment(s): Vaginal hysterectomy with cystocele repair 2010. HEMORROIDECTOMY. Cataracts. COLONOSCOPIES (last 2013), EGD. Past Anesthesia/Blood Transfusion Reactions: No Reported Reaction Past Psychological History: No Psychological Hx Reported Smoking Status: Never smoker Past Alcohol Use History: None Reported Past Drug Use History: None Reported - Past Family History Sister(s) Family Medical History: Cancer Additional Family Medical History / Comment(s): Breast cancer. Father Family Medical History: Cancer, Myocardial Infarction ([place]), Osteoarthritis ([place]) Mother Family Medical History: Myocardial Infarction ([place]) Medications and Allergies Home Medications Medication Instructions Recorded Confirmed Type Ubidecarenone [Coq-10] 100 mg PO DAILY 12/22/13 10/05/22 History Vitamin B Complex 1 cap PO DAILY 12/22/13 10/05/22 History Acetaminophen [Tylenol] 500 mg PO Q4-6H PRN 08/14/16 10/05/22 History Aspirin EC [Ecotrin Low Dose] 81 mg PO DAILY 10/19/19 10/05/22 History Cholecalciferol [Vitamin D3 (25 25 mcg PO DAILY 10/05/22 10/05/22 History Mcg = 1000 Iu)] Meclizine [Antivert] 25 mg PO TID PRN 10/05/22 10/05/22 History Metoprolol Tartrate [Lopressor] 12.5 mg PO BID #60 tab 10/05/22 Rx Allergies Allergy/AdvReac Type Severity Reaction Status Date / Time latex Allergy Rash/Hives Verified 10/05/22 11:28 Physical Exam Osteopathic Statement: *. No significant issues noted on an osteopathic structural exam other than those noted in the History and Physical/Consult. Vitals: Vital Signs Temp Pulse Resp BP Pulse Ox 10/05/22 13:09 82 16 132/79 97 10/05/22 11:22 81 16 145/85 97 10/05/22 09:35 98.3 F 85 18 131/90 98 Intake and Output 10/04/22 10/05/22 10/05/22 22:59 06:59 14:59 Other: Weight 53.977 kg Results CBC & Chem 7: 10/05/22 10:10 10/05/22 10:10 Labs: Abnormal Lab Results - Last 24 Hours (Table) 10/05/22 10/05/22 10/05/22 Range/Units 10:10 10:10 10:10 Lymphocytes # 0.8 L (1.0-4.8) k/uL APTT 21.9 L (22.0-30.0) sec BUN 18 H (7-17) mg/dL Glucose 162 H (74-99) mg/dL
--- NOTE | 2022-10-05 15:07 | P.DS ---
Providers Date of admission: 10/05/22 11:26 Expected date of discharge: 10/05/22 Attending physician: Murtaza Graves MD Consults: 10/05/22 11:26 Consult Physician Urgent Consulting Provider: [facility] Consult Reason/Comments: Chest pain Do you want consulting provider notified?: Yes Primary care physician: [facility] Hospital Course: Assessment: Chest pain, atypical Hypertension Hyperlipidemia Aortic and mitral regurgitation History of CAD Hospital Course: 79-year-old woman with a medical history of hypertension, hyperlipidemia, CAD, aortic mitral regurgitation presented for evaluation chest pain. In the emergency room, patient is afebrile, 131/90, heart rate 85, 98% room air. CBC is unremarkable., BMP is unremarkable. Liver function tests are unremarkable. Troponin was less than 0.012. Repeat troponin is less than 0.012. Coags are unremarkable. EKG showed normal sinus rhythm with no evidence of active ischemia. Chest x-ray was clear bilaterally with no evidence of acute cardiopulmonary pathology. Case was discussed the emergency room provider and decision was made to admit patient to observation for further management. Patient was evaluated by cardiology, they cleared the patient for discharge after her second troponin returned negative. No need to repeat echocardiogram. Patient was started on metoprolol 12.5 mg twice a day, also started on Lipitor 40 mg daily at bedtime. She was instructed to follow-up with her inspector repairer in the outpatient setting. Gen: in no apparent distress, resting comfortably in bed Eyes: PERRL, no scleral injection or icterus HENT: normocephalic, atraumatic, good hearing acuity, moist mucous membranes Neck: no tracheal deviation, full range of motion Resp: good air exchange, breathing comfortably with no accessory muscle use, no tactile fremitus CVS: good distal perfusion x 4, no pitting edema GI: soft, NTTP, ND, no hepatosplenomegaly : no suprapubic tenderness, no CVAT, de la torre catheter not present MSK: no clubbing, no cyanosis, no noted contractures of extremities Skin: no noted rashes, petechiae; temperature of skin is appropriate Neuro: moving all extremities without signs of weakness, CN II-XII intact Psych: cooperative, euthymic mood, insight and judgment intact Patient Condition at Discharge: Good Plan - Discharge Summary New Discharge Prescriptions: New Metoprolol Tartrate [Lopressor] 12.5 mg PO BID #60 tab Atorvastatin [Lipitor] 40 mg PO HS #30 tablet Continue Vitamin B Complex 1 cap PO DAILY Ubidecarenone [Coq-10] 100 mg PO DAILY Acetaminophen [Tylenol] 500 mg PO Q4-6H PRN PRN Reason: Pain Aspirin EC [Ecotrin Low Dose] 81 mg PO DAILY Meclizine [Antivert] 25 mg PO TID PRN PRN Reason: Vertigo Cholecalciferol [Vitamin D3 (25 Mcg = 1000 Iu)] 25 mcg PO DAILY Discharge Medication List Ubidecarenone [Coq-10] 100 mg PO DAILY 12/22/13 [History] Vitamin B Complex 1 cap PO DAILY 12/22/13 [History] Acetaminophen [Tylenol] 500 mg PO Q4-6H PRN 08/14/16 [History] Aspirin EC [Ecotrin Low Dose] 81 mg PO DAILY 10/19/19 [History] Atorvastatin [Lipitor] 40 mg PO HS #30 tablet 10/05/22 [Rx] Cholecalciferol [Vitamin D3 (25 Mcg = 1000 Iu)] 25 mcg PO DAILY 10/05/22 [History] Meclizine [Antivert] 25 mg PO TID PRN 10/05/22 [History] Metoprolol Tartrate [Lopressor] 12.5 mg PO BID #60 tab 10/05/22 [Rx] Follow up Appointment(s)/Referral(s): Berhane Patel MD [STAFF PHYSICIAN] - 1 Week Jeremy James MD [Primary Care Provider] - 1-2 days Discharge Disposition: HOME SELF-CARE
[2022-10-05 17:08] VITALS: BP 123/83; PULSE 78; RESP 18; TEMP 97.8
[2022-10-05] MEDS ORDERED: HEPARIN SODIUM,PORCINE/PF 5,000 UNIT/0.5 ML SYRINGE SQ SCH (21:00)
[2022-10-06] MEDS ORDERED: CHOLECALCIFEROL 25 MCG (1000 IU) TABLET PO SCH (09:00)
[2022-10-06] MEDS ORDERED: FOLIC ACID-VIT B COMPLEX-VIT C 1 CAP PO SCH (09:00)
[2022-10-06] MEDS ORDERED: ASPIRIN 81 MG PO SCH (09:00)
[2022-10-06] MEDS ORDERED: ASPIRIN 325 MG TAB PO SCH ×2 (09:00)
[2022-10-06] MEDS ORDERED: NON FORMULARY DRUG (Ubidecarenone [Coq-10] 100 MG Capsule) PO SCH (09:00)
== END 2022-10-05 17:09 | disposition home or self-care (01) ==
LOC: EC 09:27 → 6NMEDSUR 11:26
PROVIDERS: ADMIT Student in an Organized Health Care Education/Training Program; ATTEND Student in an Organized Health Care Education/Training Program
DX: R07.89 Other chest pain (principal); I25.110 Atherosclerotic heart disease of native coronary artery with unstable angina pectoris; I08.0 Rheumatic disorders of both mitral and aortic valves; R00.2 Palpitations; I10 Essential (primary) hypertension; E78.5 Hyperlipidemia, unspecified; K21.9 Gastro-esophageal reflux disease without esophagitis; E16.2 Hypoglycemia, unspecified; M85.80 Other specified disorders of bone density and structure, unspecified site; R42 Dizziness and giddiness; R13.10 Dysphagia, unspecified; Z79.82 Long term (current) use of aspirin; Z79.899 Other long term (current) drug therapy; Z91.040 Latex allergy status; Z90.710 Acquired absence of both cervix and uterus; Z90.49 Acquired absence of other specified parts of digestive tract; Z87.19 Personal history of other diseases of the digestive system; Z98.890 Other specified postprocedural states; Z98.49 Cataract extraction status, unspecified eye; Z80.3 Family history of malignant neoplasm of breast; Z82.49 Family history of ischemic heart disease and other diseases of the circulatory system; Z82.61 Family history of arthritis; Z80.9 Family history of malignant neoplasm, unspecified
CPT/HCPCS: 96360; 96361; 99285; 36415; 93005; 80053; 83735; 84484; 85025; 85610; 85730; 71046; G0378